=== PATIENT | female | born 1935 | race Caucasian/White ===

== ENCOUNTER 2022-01-07 21:25 | Inpatient (IN) | payer MEDICARE, OTHER ==
[~2022-01-07] VITALS: Ht 154.9 cm; Wt 63.0 kg
[~2022-01-07 21:25] MED LIST: DULO60CA64 PO; ESTR-95 PO; GABA-1216 PO; METH2.5 PO; MULT1TAB28 PO; NAPR-1193 PO; OXYB-34 PO; SENN8.6T20 PO; TOLT2CAP PO; TRAZ-257 PO
[2022-01-07 22:41] LABS: GLUCOMETER DEV NAME(LOC) ERT.5; GLUCOSE,POINT OF CARE 131 MG/DL (70-110)
[2022-01-07 22:53] LABS: BASOPHILS % (AUTO) 0.3 % (0.0-2.0); EOSINOPHILS % (AUTO) 0.3 % (1.0-6.0); HEMATOCRIT 22.2 % (36-46); HEMOGLOBIN 7.1 g/dL (12.0-16.0); LYMPHOCYTES # (AUTO) 1.2 K/uL (1.0-4.8); LYMPHOCYTES % (AUTO) 12.3 % (22.0-44.0); MEAN CORPUSCULAR HEMOGLOBIN 27.2 pg (26.0-34.0); MEAN CORPUSCULAR HGB CONC 31.8 G/dL (31.0-37.0); MEAN CORPUSCULAR VOLUME 85 fL (80-100); MONOCYTES # (AUTO) 0.4 K/uL (0.1-1.0); MONOCYTES % (AUTO) 3.7 % (2.0-9.0); NEUTROPHILS # (AUTO) 8.1 K/uL (1.8-7.7); NEUTROPHILS % (AUTO) 83.4 % (40.0-70.0); PLATELET COUNT (AUTO) 251 K/uL (150-450); RED CELL DISTRIBUTION WIDTH 21.7 % (11.5-14.5)
[2022-01-07 23:18] LABS: CALCIUM, TOTAL 9.7 mg/dL (8.8-10.5); CREATININE 1.07 mg/dL (0.60-1.30); POTASSIUM 4.1 mmol/L (3.5-5.1)
[2022-01-07 23:24] LABS: ALBUMIN 3.5 g/dL (3.4-5.0); BILIRUBIN,TOTAL 0.5 mg/dL (0.1-1.0); TOTAL PROTEIN, SERUM 6.4 g/dL (6.4-8.2)
[2022-01-07] MEDS ORDERED: MORPHINE SULFATE 4 MG/ML SYRINGE IVP ONE (23:30)
[2022-01-07 23:58] LABS: COVID AG,FIA SOURCE NASOPHARYNGEAL
[2022-01-08] VITALS (18 sets, daily range): BP systolic 98–134; BP diastolic 41–66
[2022-01-08 00:11] LABS: APPEARANCE,URINE CLEAR (CLEAR); BILIRUBIN,URINE NEGATIVE (NEGATIVE); GLUCOSE, URINE (UA) 70-100 mg/dL (NEGATIVE); KETONES,URINE NEGATIVE (NEGATIVE); LEUKOCYTE ESTERASE ,URINE NEGATIVE (NEGATIVE); NITRATE,URINE NEGATIVE (NEGATIVE); OCCULT BLOOD,URINE NEGATIVE (NEGATIVE); PROTEIN,URINE NEGATIVE (NEGATIVE); UROBILINOGEN,URINE <=1.0 mg/dL (<=1.0)
[2022-01-08] MEDS ORDERED: IOHEXOL 350 MG/ML 100 ML VIAL ONE (00:11)
[2022-01-08] MEDS ORDERED: SODIUM CHLORIDE 0.9% 100 ML ONE (00:11)
[2022-01-08] MEDS ORDERED: PANTOPRAZOLE SODIUM 40 MG/VIAL IVP ONE (00:15)
[2022-01-08 00:25] LABS: BACTERIA,URINE None Seen /HPF (None Seen); RBC,URINE 0-2 /HPF (0-2); WBC,URINE None Seen /HPF (0-5)
[2022-01-08] MEDS ORDERED: FAMOTIDINE 10 MG/ML 2 ML VIAL IVP ONE (00:45)
[2022-01-08] MEDS ORDERED: SODIUM CHLORIDE 0.9% 1,000 ML IV ONE (00:45)
[2022-01-08] MEDS ORDERED: ONDANSETRON HCL 4 MG/2 ML VIAL ONE (00:46)
[2022-01-08 00:48] LABS: INR 1.2 (0.9-1.1); PROTHROMBIN TIME 12.2 SEC (9.4-11.6)
[2022-01-08] MEDS: PANTOPRAZOLE SODIUM 80 MG in SODIUM CHLORIDE 0.9% 100 ML IV SCH ×4 (00:51→20:11)
[2022-01-08] MEDS ORDERED: ONDANSETRON HCL 4 MG/2 ML VIAL IVP ONE ×2 (01:00→02:15)
[2022-01-08] MEDS ORDERED: SODIUM CHLORIDE 0.9% 250 ML IV ONE (03:21)
[2022-01-08] MEDS ORDERED: ONDANSETRON HCL 4 MG/2 ML VIAL IVP PRN ×2 (04:00)
[2022-01-08] MEDS ORDERED: ACETAMINOPHEN 325 MG TABLET PO PRN ×2 (04:00→19:30)
[2022-01-08] MEDS ORDERED: 0.9% SODIUM CHLORIDE 10 ML SYRINGE IVP PRN (04:00)
[2022-01-08] MEDS ORDERED: RINGERS SOLUTION,LACTATED 1,000 ML IV SCH (04:00)
[2022-01-08] MEDS ORDERED: CefTRIAXone 1 GM/DEXTROSE 50 ML IV ONE (05:15)
[2022-01-08 09:02] LABS: ANION GAP 9 mmol/L (8-16); BASOPHILS % (AUTO) 0.3 % (0.0-2.0); CALCIUM, TOTAL 8.6 mg/dL (8.8-10.5); CARBON DIOXIDE 26 mmol/L (22-29); CHLORIDE 108 mmol/L (98-107); CREATININE 0.88 mg/dL (0.60-1.30); EOSINOPHILS % (AUTO) 0.4 % (1.0-6.0); GLOMERULAR FILTR. RATE CALC > 60 mL/min (>60); GLUCOSE,RANDOM 116 mg/dL (70-110); LYMPHOCYTES # (AUTO) 1.2 K/uL (1.0-4.8); LYMPHOCYTES % (AUTO) 12.7 % (22.0-44.0); MEAN CORPUSCULAR HEMOGLOBIN 27.9 pg (26.0-34.0); MEAN CORPUSCULAR HGB CONC 32.6 G/dL (31.0-37.0); MEAN CORPUSCULAR VOLUME 86 fL (80-100); MONOCYTES # (AUTO) 0.5 K/uL (0.1-1.0); MONOCYTES % (AUTO) 5.1 % (2.0-9.0); NEUTROPHILS # (AUTO) 7.7 K/uL (1.8-7.7); NEUTROPHILS % (AUTO) 81.5 % (40.0-70.0); PLATELET COUNT (AUTO) 181 K/uL (150-450); RED BLOOD CELL COUNT(AUTO) 2.39 MIL/uL (4.00-5.20); RED CELL DISTRIBUTION WIDTH 19.5 % (11.5-14.5); SODIUM SERUM 143 mmol/L (136-145); UREA NITROGEN, BLOOD 34 mg/dL (7-18)
[2022-01-08 09:06] LABS: HEMATOCRIT 20.5 % (36-46); HEMOGLOBIN 6.7 g/dL (12.0-16.0)
[2022-01-08] MEDS: FentaNYL CITRATE PF 100 MCG/2 ML VIAL IVP PRN (10:19)
[2022-01-08] MEDS: SODIUM CHLORIDE 0.9% 1,000 ML IV SCH (13:53)
[2022-01-08 14:39] LABS: HEMATOCRIT 25.8 % (36-46); HEMOGLOBIN 8.6 g/dL (12.0-16.0)
[2022-01-09] VITALS (7 sets, daily range): BP systolic 99–128; BP diastolic 31–60
[2022-01-09] MEDS: SODIUM CHLORIDE 0.9% 1,000 ML IV SCH ×2 (00:50→12:20)
[2022-01-09] MEDS: PANTOPRAZOLE SODIUM 80 MG in SODIUM CHLORIDE 0.9% 100 ML IV SCH ×2 (06:02→18:30)
[2022-01-09 06:15] LABS: BASOPHILS % (AUTO) 0.4 % (0.0-2.0); EOSINOPHILS % (AUTO) 2.7 % (1.0-6.0); HEMATOCRIT 24.9 % (36-46); HEMOGLOBIN 8.4 g/dL (12.0-16.0); LYMPHOCYTES # (AUTO) 0.9 K/uL (1.0-4.8); LYMPHOCYTES % (AUTO) 16.2 % (22.0-44.0); MEAN CORPUSCULAR HGB CONC 33.7 G/dL (31.0-37.0); MEAN CORPUSCULAR VOLUME 86 fL (80-100); MONOCYTES # (AUTO) 0.4 K/uL (0.1-1.0); MONOCYTES % (AUTO) 7.8 % (2.0-9.0); NEUTROPHILS # (AUTO) 4.2 K/uL (1.8-7.7); NEUTROPHILS % (AUTO) 72.9 % (40.0-70.0); PLATELET COUNT (AUTO) 157 K/uL (150-450); RED BLOOD CELL COUNT(AUTO) 2.89 MIL/uL (4.00-5.20); RED CELL DISTRIBUTION WIDTH 18.2 % (11.5-14.5)
[2022-01-09 06:32] LABS: CREATININE 1.11 mg/dL (0.60-1.30); POTASSIUM 4.4 mmol/L (3.5-5.1)
[2022-01-09 06:33] LABS: ALBUMIN 2.7 g/dL (3.4-5.0); BILIRUBIN,TOTAL 0.5 mg/dL (0.1-1.0); CALCIUM, TOTAL 8.5 mg/dL (8.8-10.5); TOTAL PROTEIN, SERUM 5.2 g/dL (6.4-8.2)
[2022-01-09] MEDS: FentaNYL CITRATE PF 100 MCG/2 ML VIAL IVP PRN (08:39)
[2022-01-09 11:00] LABS: HEMATOCRIT 24.8 % (36-46); HEMOGLOBIN 8.3 g/dL (12.0-16.0)
[2022-01-09] MEDS: MORPHINE SULFATE 2 MG/ML SYRINGE IVP PRN ×2 (14:56→22:10)
[2022-01-09 16:58] LABS: HEMATOCRIT 23.4 % (36-46); HEMOGLOBIN 7.7 g/dL (12.0-16.0)
[2022-01-09 23:42] LABS: HEMATOCRIT 24.3 % (36-46)
[2022-01-10] MEDS ORDERED: MELATONIN 3 MG TABLET PO PRN (01:15)
[2022-01-10] MEDS: PANTOPRAZOLE SODIUM 80 MG in SODIUM CHLORIDE 0.9% 100 ML IV SCH ×3 (03:08→22:54)
[2022-01-10 04:15] VITALS: BP 120/61
[2022-01-10] MEDS: SODIUM CHLORIDE 0.9% 1,000 ML IV SCH ×2 (06:00→12:57)
[2022-01-10 06:06] LABS: H. PYLORI ANTIBODY IGG 0.26 (0.00-0.79)
[2022-01-10] MEDS ORDERED: PROPOFOL 1% 20 ML VIAL IVP ONE (06:26)
[2022-01-10] MEDS: MORPHINE SULFATE 2 MG/ML SYRINGE IVP PRN ×3 (06:42→20:53)
[2022-01-10 08:23] VITALS: BP 126/62
[2022-01-10] MEDS: ACYCLOVIR 200 MG CAPSULE PO SCH (09:30)
[2022-01-10] MEDS: ESTRADIOL 1 MG TABLET PO SCH (13:38)
[2022-01-10] MEDS: OXYBUTYNIN CHLORIDE 5 MG ER TABLET PO SCH (13:38)
[2022-01-10] MEDS: TOLTERODINE TARTRATE 2 MG ER CAPSULE PO SCH (13:38)
[2022-01-10] MEDS: MULTIVITAMINS, THERAPEUTIC TABLET PO SCH (13:38)
[2022-01-10] MEDS: SENNA 187 MG TABLET PO SCH (13:40)
[2022-01-10] MEDS: GABAPENTIN 100 MG CAPSULE PO SCH ×2 (16:04→20:44)
[2022-01-10 16:15] VITALS: BP 101/50
[2022-01-10 20:18] VITALS: BP 92/50
[2022-01-10] MEDS: TraZODone HCL 100 MG TABLET PO SCH (20:44)
[2022-01-10] MEDS: ETHYL ALCOHOL 62% ANTISEPTIC NASAL INHALANT 0.6 ML AMPUL NASAL SCH (22:49)
[2022-01-11] MEDS: SODIUM CHLORIDE 0.9% 1,000 ML IV SCH ×2 (01:43→12:22)
[2022-01-11 03:45] VITALS: BP 120/64
[2022-01-11 08:58] VITALS: BP 132/73
[2022-01-11] MEDS: MULTIVITAMINS, THERAPEUTIC TABLET PO SCH (10:13)
[2022-01-11] MEDS: TOLTERODINE TARTRATE 2 MG ER CAPSULE PO SCH (10:14)
[2022-01-11] MEDS: SENNA 187 MG TABLET PO SCH (10:14)
[2022-01-11] MEDS: GABAPENTIN 100 MG CAPSULE PO SCH ×3 (10:14→21:27)
[2022-01-11] MEDS: OXYBUTYNIN CHLORIDE 5 MG ER TABLET PO SCH (10:14)
[2022-01-11] MEDS: PANTOPRAZOLE SODIUM 80 MG in SODIUM CHLORIDE 0.9% 100 ML IV SCH ×2 (10:15→17:49)
[2022-01-11] MEDS: ETHYL ALCOHOL 62% ANTISEPTIC NASAL INHALANT 0.6 ML AMPUL NASAL SCH ×2 (10:15→21:38)
[2022-01-11] MEDS: ESTRADIOL 1 MG TABLET PO SCH (10:19)
[2022-01-11] MEDS: ACYCLOVIR 200 MG CAPSULE PO SCH ×3 (10:19→21:28)
[2022-01-11] MEDS: MORPHINE SULFATE 2 MG/ML SYRINGE IVP PRN (13:28)
[2022-01-11] MEDS ORDERED: PANT-31 PO (14:32)
[2022-01-11] MEDS ORDERED: ACYC200C24 PO (14:32)
[2022-01-11 18:14] VITALS: BP 103/69
[2022-01-11 19:26] VITALS: BP 131/55
[2022-01-11 20:59] VITALS: BP 130/68
[2022-01-11] MEDS: TraZODone HCL 100 MG TABLET PO SCH (21:30)
[2022-01-12 04:01] VITALS: BP 130/59
[2022-01-12 05:41] VITALS: BP 130/63
[2022-01-12 09:05] VITALS: BP 128/59
[2022-01-12] MEDS: OXYBUTYNIN CHLORIDE 5 MG ER TABLET PO SCH (09:16)
[2022-01-12] MEDS: ESTRADIOL 1 MG TABLET PO SCH (09:16)
[2022-01-12] MEDS: GABAPENTIN 100 MG CAPSULE PO SCH (09:17)
[2022-01-12] MEDS: SENNA 187 MG TABLET PO SCH (09:17)
[2022-01-12] MEDS: TOLTERODINE TARTRATE 2 MG ER CAPSULE PO SCH (09:17)
[2022-01-12] MEDS: MULTIVITAMINS, THERAPEUTIC TABLET PO SCH (09:17)
[2022-01-12] MEDS: ETHYL ALCOHOL 62% ANTISEPTIC NASAL INHALANT 0.6 ML AMPUL NASAL SCH (09:17)
[2022-01-12] MEDS: ACYCLOVIR 200 MG CAPSULE PO SCH (09:18)
[2022-01-12] MEDS: MORPHINE SULFATE 2 MG/ML SYRINGE IVP PRN (09:36)
[2022-01-12 11:06] LABS: H. PYLORI ANTIBODY IGM <9.0 units (0.0-8.9)
[2022-01-12 20:06] LABS: H. PYLORI ANTIBODY IGA <9.0 units (0.0-8.9)
== END 2022-01-12 15:00 | disposition home or self-care (01) | DRG 377 ==
LOC: EMS 21:40 → ICU 01-08 04:00 → 6S 01-09 15:20
PROVIDERS: ADMIT Internal Medicine; ATTEND Internal Medicine
PROC: 30233N1 Transfusion of Nonautologous Red Blood Cells into Peripheral Vein, Percutaneous Approach (ICD-10-PCS; 2022-01-08)
PROC: 0DB78ZX Excision of Stomach, Pylorus, Via Natural or Artificial Opening Endoscopic, Diagnostic (ICD-10-PCS; principal; 2022-01-08 14:30)
DX: K26.4 Chronic or unspecified duodenal ulcer with hemorrhage (principal); E43 Unspecified severe protein-calorie malnutrition; D62 Acute posthemorrhagic anemia; N39.0 Urinary tract infection, site not specified; K25.4 Chronic or unspecified gastric ulcer with hemorrhage; B00.1 Herpesviral vesicular dermatitis; K59.00 Constipation, unspecified; F41.9 Anxiety disorder, unspecified; F31.9 Bipolar disorder, unspecified; Z20.822 Contact with and (suspected) exposure to COVID-19; D49.512 Neoplasm of unspecified behavior of left kidney; L40.50 Arthropathic psoriasis, unspecified; Z90.710 Acquired absence of both cervix and uterus; Z90.49 Acquired absence of other specified parts of digestive tract; Z98.51 Tubal ligation status; Z79.899 Other long term (current) drug therapy; Z79.1 Long term (current) use of non-steroidal anti-inflammatories (NSAID); Z68.26 Body mass index [BMI] 26.0-26.9, adult
CPT/HCPCS: 74022; 74177; 80048; 80053; 81001; 82271; 82962; 83690; 84484; 85014; 85018; 85025; 85610; 85730; 86677; 86850; 86900; 86901; 86923; 87081; 93005; 99291; C9113; G0378; J0696; J2270; J2405; J2704; J3010; J3490; J7030; J7050; J7120; P9016; Q9967